=== PATIENT | male | born 1985 | race Caucasian/White ===

== ENCOUNTER 2019-07-14 21:52 | Emergency (ER) | payer MEDICAID ==
[~2019-07-14] VITALS: Ht 177.8 cm; Wt 72.6 kg
[2019-07-14 22:44] LABS: Basophils # (auto) 0.1 uL; Basophils % (auto) 0.6 % (0.0-2.0); Eosinophils # (auto) 0.4 uL; Eosinophils % (auto) 3.3 % (0.0-7.0); Hematocrit 34.2 % (41.0-53.0); Hemoglobin 11.4 g/dL (13.5-17.5); Lymphocytes # (auto) 3.2 uL; Lymphocytes % (auto) 28.2 % (10.0-50.0); Mean Corpuscular Hemoglobin 27.4 pg (28.0-32.0); Mean Corpuscular Hgb Conc. 33.3 g/dL (32.0-36.0); Mean Corpuscular Volume 82.3 fL (80.0-100.0); Monocytes # (auto) 0.7 uL; Monocytes % (auto) 6.1 % (0.0-12.0); Neutrophils # (auto) 6.9 uL; Neutrophils % (auto) 61.8 % (37.0-80.0); Platelet Count (auto) 354 10^3/uL (140-450); Red Blood Cells 4.16 10^6/uL (4.5-5.90); Red Cell Distribution Width 13.9 % (11.8-14.3); White Blood Cell 11.2 10^3/uL (4.4-10.8)
[2019-07-14 22:48] LABS: Urine Bacteria FEW /hpf (None Seen); Urine Blood Negative /uL (Negative); Urine Specific Gravity 1.002 (1.001-1.035); Urine WBC 1 /hpf (0 - 3)
[2019-07-14 23:02] LABS: Albumin 3.4 g/dL (3.4-5.0); Anion Gap 5 (5-15); Blood Alcohol < 3.0 mg/dL (0-5); Blood Urea Nitrogen 8 mg/dL (7-18); Calcium 8.3 mg/dL (8.5-10.1); Carbon Dioxide 26 mmol/L (21-32); Chloride 109 mmol/L (98-107); Glucose 89 mg/dL (74-106); Magnesium 2.2 mg/dL (1.6-2.6); Potassium 3.5 mmol/L (3.5-5.1); Sodium 140 mmol/L (136-145)
[2019-07-14 23:03] LABS: Alcohol, Urine < 3.0 mg/dL (0-5); Amphetamine Screen, Urine NEGATIVE (NEGATIVE); Barbiturate Scree,Urine NEGATIVE (NEGATIVE); Benzodiazephine Screen, Urine POSITIVE (NEGATIVE); Cannabinoid Screen, Urine NEGATIVE (NEGATIVE); Cocaine Screen, Urine NEGATIVE (NEGATIVE); Opiate Scree,Urine NEGATIVE (NEGATIVE); Phencyclidine Screen, Urine NEGATIVE (NEGATIVE)
[2019-07-14 23:03] LABS: Acetaminophen < 2.0 ug/mL (10-30); Salicylate < 1.7 mg/dL (2.8-20.0)
[2019-07-14 23:04] LABS: Alanine Aminotransferase 12 U/L (16-61); Aspartate Aminotransferase 6 U/L (15-37); BUN/Creatinine Ratio 7.6; GFR African American 106 mL/min; GFR Non-African American 88 mL/min
[2019-07-14 23:06] LABS: Alkaline Phosphatase 73 U/L (45-117); Bilirubin, Total 0.2 mg/dL (0.2-1.0); Total Protein 6.3 g/dL (6.4-8.2)
[2019-07-14] MEDS ORDERED: SODIUM CHLORIDE 0.9% 1,000 ML IV ONE (23:15)
[2019-07-15] MEDS ORDERED: SODIUM CHLORIDE 0.9% 1,000 ML IV ONE (00:30)
[2019-07-15] MEDS ORDERED: ACETAMINOPHEN 325 MG TAB PO ONE ×2 (05:00→12:15)
[2019-07-15] MEDS ORDERED: LITH300T5 PO (06:15)
[2019-07-15] MEDS ORDERED: BUSP5TAB51 PO (06:15)
[2019-07-15] MEDS ORDERED: PAR20T PO (06:16)
[2019-07-15] MEDS ORDERED: QUET400T PO (06:17)
[2019-07-15] MEDS ORDERED: FLUoxetine HCL 20 MG CAP PO ONE (10:00)
[2019-07-15] MEDS ORDERED: LORazepam 0.5 MG TAB PO ONE (10:00)
[2019-07-15] MEDS ORDERED: QUEtiapine FUMARATE 100 MG TAB PO SCH (22:00)
[2019-07-15] MEDS ORDERED: QUEtiapine FUMARATE 100 MG TAB PO ONE (22:00)
[2019-07-15] MEDS: LORazepam 0.5 MG TAB PO SCH (22:26)
[2019-07-16] MEDS: LORazepam 0.5 MG TAB PO SCH (10:21)
[2019-07-16] MEDS: FLUoxetine HCL 20 MG CAP PO SCH (10:21)
[2019-07-16] MEDS: busPIRone HCL 10 MG TAB PO PRN (18:49)
[2019-07-16] MEDS: HYDROcodone-ACET 5/325MG TAB PO PRN (18:50)
[2019-07-16] MEDS: ALPRAZolam 0.25 MG TAB PO SCH (21:53)
[2019-07-17] MEDS ORDERED: HYDROcodone-ACET 10/325MG TAB PO ONE (01:15)
[2019-07-17] MEDS: FLUoxetine HCL 20 MG CAP PO SCH (10:23)
[2019-07-17] MEDS: ALPRAZolam 0.25 MG TAB PO SCH ×2 (10:33→23:17)
[2019-07-17] MEDS: HYDROcodone-ACET 5/325MG TAB PO PRN ×2 (10:34→23:18)
[2019-07-17] MEDS ORDERED: ONDANSETRON ODT 4 MG TAB PO ONE ×2 (14:59→15:00)
[2019-07-17] MEDS ORDERED: ONDANSETRON HCL 4 MG/2 ML VIAL IM ONE ×2 (15:00→20:30)
[2019-07-17] MEDS ORDERED: ONDANSETRON HCL 4 MG/2 ML VIAL ONE (15:03)
[2019-07-17] MEDS: busPIRone HCL 10 MG TAB PO PRN (23:18)
[2019-07-18] MEDS ORDERED: IBUPROFEN 600 MG TAB PO ONE (06:30)
[2019-07-18 07:55] VITALS: BP 107/71
== END 2019-07-18 08:43 | disposition home or self-care (01) ==
LOC: EDBD 21:52 → ER 21:56
DX: T44.7X2A Poisoning by beta-adrenoreceptor antagonists, intentional self-harm, initial encounter (principal); T43.592A Poisoning by other antipsychotics and neuroleptics, intentional self-harm, initial encounter; T43.222A Poisoning by selective serotonin reuptake inhibitors, intentional self-harm, initial encounter; T56.892A Toxic effect of other metals, intentional self-harm, initial encounter; F32.9 Major depressive disorder, single episode, unspecified; Y92.89 Other specified places as the place of occurrence of the external cause
CPT/HCPCS: 36415; 71045; 80053; 80178; 80307; 80320; 80329; 81001; 83735; 85025; 93005; 96372; 99284; J7030

== ENCOUNTER 2019-08-07 17:35 | Emergency (ER) | payer MEDICAID ==
[~2019-08-07] VITALS: Ht 180.3 cm; Wt 86.2 kg
[~2019-08-07 17:35] MED LIST: BUSP5TAB51 PO; LITH300T5 PO; PAR20T PO; QUET400T PO
[2019-08-07 18:14] VITALS: BP 109/71
== END 2019-08-07 21:52 | disposition left against medical advice (07) ==
LOC: ER 17:40
DX: R21 Rash and other nonspecific skin eruption (principal); Z88.1 Allergy status to other antibiotic agents; W57.XXXA Bitten or stung by nonvenomous insect and other nonvenomous arthropods, initial encounter; Y93.89 Activity, other specified; Y92.89 Other specified places as the place of occurrence of the external cause; Y99.8 Other external cause status